=== PATIENT | male | born 2000 | race Caucasian/White ===

== ENCOUNTER → 2023-10-17 12:48 | Outpatient (REF) | payer BC, SELFPAY | LOC: MRI 12:48 | PROVIDERS: ATTENDING PHYSICIAN Orthopaedic Surgery; FAMILY PHYSICIAN Physician Assistant Medical | DX: M25.512 Pain in left shoulder (principal) | CPT/HCPCS: 71046; 73030; 73221 ==

== ENCOUNTER → 2024-01-27 08:02 | Outpatient (REF) | payer BC, SELFPAY | LOC: RAD 08:02 | PROVIDERS: ATTENDING PHYSICIAN Specialist; FAMILY PHYSICIAN Physician Assistant Medical | DX: R22.2 Localized swelling, mass and lump, trunk (principal); M89.8X1 Other specified disorders of bone, shoulder | CPT/HCPCS: 73200; 76705 ==